=== PATIENT | female | born 1950 | race Caucasian/White ===

== ENCOUNTER 2021-06-07 05:39 | Day surgery (SDC) | payer MEDICARE, OTHER ==
[2021-06-07] MEDS ORDERED: Lactated Ringers 1,000 ML IV SCH (06:00)
[2021-06-07] MEDS ORDERED: DIPRIVAN 200 MG/20 ML IV ONE ×2 (07:25→07:50)
[2021-06-07] MEDS ORDERED: Xylocaine-Mpf 2% 5 Ml Vial ONE (07:50)
[2021-06-07] MEDS ORDERED: Zofran 4 MG/2 ML VIAL ONE (08:02)
[2021-06-07 09:37] VITALS: BP 153/80; PULSE 83; O2SAT 95
--- NOTE | 2021-06-07 10:40 | OP ---
SURGERY DATE/TIME: 06/07/2021 3632 PREOPERATIVE DIAGNOSES: 1) Gastroesophageal reflux disease. 2) Change in bowel habits. POSTOPERATIVE DIAGNOSES: 1) Normal EGD. 2) Diffuse diverticulosis. PROCEDURES: 1) EGD. 2) Colonoscopy. SURGEON: Wilmer Shah M.D. ANESTHESIA: MAC by Albert Marrero CRNA. ESTIMATED BLOOD LOSS: Minimal. SPECIMENS: There were two cold forceps biopsies taken from the duodenum for Helicobacter pylori testing. DESCRIPTION OF PROCEDURE: After informed written consent was obtained, the patient was taken to the endoscopy suite. She had a bite block inserted and was placed in left lateral decubitus position. The scope was inserted in the posterior oropharynx and under direct visualization the esophagus was traversed. The esophageal mucosa had normal appearance free of any lesions or defects. Upon entering the stomach there was a normal gastroesophageal junction with normal rugated gastric mucosa free of any lesions or defects. The pylorus was traversed and the first and second portions of the duodenum had no obvious mucosal abnormalities. Two cold forceps biopsies were collected randomly and sent for celiac testing. Upon withdrawal again the gastric mucosa all appeared within normal limits. There were no appreciable abnormalities upon withdrawal. The gastroesophageal junction and esophageal mucosa likewise appeared normal. The scope was removed and the scopes were switched. Digital rectal exam showed normal sphincter tone and no internal lesions. The scope was inserted in the rectum and sequentially the entire colonic mucosa was traversed. The level of the cecum was reached and verified with direct visualization of the ileocecal valve. There was diffuse diverticulosis present which was carefully navigated upon entry. Upon withdrawal careful mucosal inspection again revealed diffuse diverticulosis but mostly centered in the sigmoid colon where it was extensive but no other mucosal abnormalities were appreciable. Prior to withdrawal retroflexion was performed and showed no internal lesions. The scope was removed and the patient was transferred to the recovery room in good condition.
== END 2021-06-07 09:48 | disposition home or self-care (01) ==
LOC: SDC 05:39
PROVIDERS: ATTEND Family Medicine
DX: K21.9 Gastro-esophageal reflux disease without esophagitis (principal); R19.4 Change in bowel habit; R10.9 Unspecified abdominal pain; K57.30 Diverticulosis of large intestine without perforation or abscess without bleeding
CPT/HCPCS: 99100; J2405; J2704

== ENCOUNTER 2021-07-26 12:10 | Emergency (ER) | payer MEDICARE, OTHER ==
[2021-07-26 12:28] VITALS: O2SAT 98
[2021-07-26] MEDS ORDERED: XYLOCAINE 1% HCL 20 ML MDV ONE (12:33)
[2021-07-26] MEDS ORDERED: XYLOCAINE 2% HCL 20 ML MDV IJ ONE (12:34)
--- NOTE | 2021-07-26 12:41 | ERPHSYRPT ---
- History of Present Illness Time Seen by Provider: 07/26/21 12:30 Source: patient Patient Subjective Stated Complaint: skin tear Triage Nursing Assessment: pt to ED c/o L ankle pain r/t skin tear. her dogs tooth scraped her ankle last night. she was cleaned with peroxide and topical abx just after incident. rates 8/10 pain now. bleeding controlled. wrapped by daughter last night. Physician History: Patient is a 70-year-old female presents to our ED with a laceration to the medial aspect of her left lower extremity. Patient sustained a laceration injury by one of her dogs. Patient states 2 of her dogs were fighting. Dogs are both immunized. Patient attempted to pull the dogs apart and one dog bit our patient and lacerated the skin. Injury occurred last night. Patient cleaned the wound at home and administered Keflex. Patient's tetanus is not updated and cannot be updated as patient has severe allergy/adverse reaction to tetanus vaccinations. Patient took Tylenol for her pain. Patient states her pain is well controlled at this time. No other injuries reported. Symptoms are mild to moderate in intensity. No specific worsening or improving factors. Patient is ambulatory with a normal gait. Patient voices no other complaints or concerns at this time. Severity: moderate Modifying Factors: Improves With: nothing Associated Symptoms: denies symptoms Allergies/Adverse Reactions: levofloxacin [From Levaquin] Allergy (Severe, Verified 07/26/21 12:40) tendonitis metronidazole Allergy (Severe, Verified 07/26/21 12:40) tendonitis tetanus and diphtheria toxoids Allergy (Verified 07/26/21 12:40) Home Medications: Alprazolam [Xanax] 0.5 mg PO DAILY 06/07/21 [History] Hydrochlorothiazide 12.5 mg PO DAILY 06/07/21 [History] Losartan Potassium 50 mg [Cozaar 50 MG] 50 mg PO DAILY 06/07/21 [History] Metoprolol Succinate 50 mg PO DAILY 06/07/21 [History] Rosuvastatin Calcium [Crestor] 10 mg PO DAILY 06/07/21 [History] Hx Tetanus, Diphtheria Vaccination/Date Given: No Hx Influenza Vaccination/Date Given: Yes Hx Pneumococcal Vaccination/Date Given: Yes Immunizations Up to Date: No Travel Risk - International Travel Have you traveled outside of the country in past 3 weeks: No - Coronavirus Screening Are you exhibiting any of the following symptoms?: No Close contact with a COVID-19 positive Pt in past 14-21 Days: No - Vaccine Status Have you recieved a Covid-19 vaccination: Yes Lay Brother: [employer] - Vaccination Dates Date of 2cond Vaccination (if applicable): Dec - Review of Systems Constitutional: No Symptoms, No Fever, No Chills Eyes: No Symptoms Ears, Nose, & Throat: No Symptoms Respiratory: No Symptoms, No Cough, No Dyspnea Cardiac: No Symptoms, No Chest Pain, No Edema, No Syncope Abdominal/Gastrointestinal: No Symptoms, No Abdominal Pain, No Nausea, No Vo miting, No Diarrhea Genitourinary Symptoms: No Symptoms, No Dysuria Musculoskeletal: No Symptoms, No Back Pain, No Neck Pain Skin: No Symptoms, No Rash Neurological: No Symptoms, No Dizziness, No Focal Weakness, No Sensory Changes Psychological: No Symptoms Endocrine: No Symptoms Hematologic/Lymphatic: No Symptoms Immunological/Allergic: No Symptoms All Other Systems: Reviewed and Negative - Past Medical History Pertinent Past Medical History: Yes Neurological History: No Pertinent History ENT History: Other Cardiac History: High Cholesterol, Hypertension, Other Respiratory History: COPD Endocrine Medical History: No Pertinent History Musculoskeletal History: No Pertinent History GI Medical History: GERD History: Kidney Cancer Psycho-Social History: Anxiety Female Reproductive Disorders: No Pertinent History Other Medical History: 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, , 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, - Past Surgical History Past Surgical History: Yes Neuro Surgical History: No Pertinent History Cardiac: No Pertinent History Respiratory: No Pertinent History Gastrointestinal: Appendectomy Genitourinary: Kidney Surgery Musculoskeletal: Orthopedic Surgery Female Surgical History: Tubal Ligation Other Surgical History: left kidney removed from renal cell carcinoma -2017 - Social History Smoking Status: Former smoker Exposure to second hand smoke: No Drug Use: none Patient Lives Alone: No - Female History Hx Now: No - Nursing Vital Signs Nursing Vital Signs: Initial Vital Signs Temperature 97.4 F 07/26/21 12:18 Pulse Rate 82 07/26/21 12:18 Respiratory Rate 18 07/26/21 12:18 Blood Pressure 195/104 07/26/21 12:18 O2 Sat by Pulse Oximetry 98 07/26/21 12:18 Pain Scale Pain Intensity 0 - Physical Exam General Appearance: no apparent distress, alert Eye Exam: PERRL/EOMI, eyes nml inspection Ears, Nose, Throat Exam: normal ENT inspection, TMs normal, pharynx normal, moist mucous membranes Neck Exam: normal inspection, non-tender, supple, full range of motion Respiratory Exam: normal breath sounds, lungs clear, No respiratory distress Cardiovascular Exam: regular rate/rhythm, normal heart sounds, normal peripheral pulses Gastrointestinal/Abdomen Exam: soft, normal bowel sounds, No tenderness, No mass Back Exam: normal inspection, normal range of motion, No CVA tenderness, No vertebral tenderness Extremity Exam: normal inspection, normal range of motion, pelvis stable Neurologic Exam: alert, oriented x 3, cooperative, normal mood/affect, nml cerebellar function, nml station & gait, sensation nml, No motor deficits Skin Exam: normal color, warm, dry, No rash Lymphatic Exam: No adenopathy SpO2: 98 Procedures - Laceration/Wound Repair Medial Ankle Time of Procedure: 13:35 Wound Location: Left (Medial aspect left ankle.) Wound Length (cm): 10 Wound's Depth, Shape: into subcut Wound Explored: clean Irrigated: Yes Hibiclens Prep: No Anesthesia: 2% Lidocaine Volume Anesthetic (ccs): 8 Wound Debrided: No debridement indicated Suture Size/Type: 4-0 Number of Sutures: 14 Layer Closure?: No Sterile Dressing Applied?: Yes Splint Applied?: No Sling Applied?: No Progress: 14 simple interrupted 4-0 nylon sutures applied. Patient tolerated procedure well. No complications. Patient neurovascularly intact post procedure. 07/26/21 13:38 - Course Nursing assessment & vital signs reviewed: Yes Ordered Tests: Medication Summary Discontinued Medications Generic Name Dose Route Start Last Admin Trade Name Leatha PRN Reason Stop Dose Admin Lidocaine HCl 5 ml 07/26/21 12:34 07/26/21 12:42 Xylocaine 2% Hcl 20 Ml Mdv IJ 07/26/21 12:35 5 ml STAT ONE Administration Lidocaine HCl Confirm 07/26/21 12:33 Xylocaine 1% Hcl 20 Ml Mdv Administered 07/26/21 12:34 Dose 1 ml .ROUTE .STK-MED ONE - Progress Progress: improved Progress Note: Wound was semilunar with a flap formation. Wound measures 10 cm. 14 simple interrupted sutures using 4-0 nylon were used for the repair. Patient tolerated procedure well. Extremity was neurovascular intact before and after our procedure. A prescription for Augmentin was forwarded to patient's pharmacy. Patient will follow up with her primary care doctor within 48 hours for reevaluation. Pain resolved after administration of lidocaine. Portions of this note were created with voice recognition technology. There may be grammatical, spelling, punctuation or sound alike errors 07/26/21 13:24 Counseled pt/family regarding: diagnosis, need for follow-up - Departure Departure Disposition: Home Clinical Impression: Dog bite, Laceration Condition: Stable Critical Care Time: No Referrals: MIKEY NEVES MD [Primary Care Provider] - Instructions: Wound Care (DC), Laceration Repair With Stitches (DC) Additional Instructions: Discharge/Care Plan JULIO BRYANT was seen on 07/26/21 in the Emergency Room. The patient was counseled regarding Diagnosis,Lab results, Imaging studies, need for follow up and when to return to the Emergency Room. Prescriptions given: Discharge Note I have spoken with the patient and/or caregivers. I have explained the patient's condition, diagnosis and treatment plan based on the information available to me at this time. I have answered the patient's and/or caregiver's questions and addressed any concerns. The patient and/or caregivers have as good understanding of the patient's diagnosis, condition and treatment plan as can be expected at this point. The vital signs have been stable. The patient's condition is stable and appropriate for discharge from the emergency department. The patient will pursue further outpatient evaluation with the primary care physician or other designated or consulting physician as outlined in the discharge instructions. The patient and/or caregivers are agreeable to this plan of care and follow-up instructions have been explained in detail. The patient and/or caregivers have received these instruction. The patient/and or caregivers are aware that any significant change in condition or worsening of symptoms should prompt an immediate return to this or the closest emergency department or call 911. Prescriptions: Amox Tr/Potass Clav. 875 mg [Augmentin 875-125 Tablet] 875 mg PO BID 7 Days #14 tablet
[2021-07-26 13:27] VITALS: BP 165/75; PULSE 76
== END 2021-07-26 13:38 | disposition home or self-care (01) ==
LOC: ED 12:10
DX: S91.012A Laceration without foreign body, left ankle, initial encounter (principal); S91.052A Open bite, left ankle, initial encounter
CPT/HCPCS: 12004; 96372; 99283

== ENCOUNTER 2022-10-03 19:35 | Emergency (ER) | payer MEDICARE, OTHER ==
--- NOTE | 2022-10-03 20:02 | ERPHSYRPT ---
- History of Present Illness Time Seen by Provider: 10/03/22 20:02 Source: patient, family Exam Limitations: no limitations Physician History: This is a 71-year-old patient of Dr. Shah who has a history of hypertension, hyperlipidemia, COPD and presents to the emergency department because of high blood pressure and associated headache. Today, patient had an eye doctor's appointment in [facility]. When she arrived her systolic blood pressure was in approximately 220 range. Her procedure was canceled. She then proceeded to Dr. Shah's office where her blood pressure improved to systolic blood pressure in the 140s. Patient takes metoprolol, losartan and hydrochlorothiazide for blood pressure. She takes those in the morning. She also has some anxiety issues and takes Xanax at night. Patient was told that if she had recurrent headache and/or her blood pressure was elevated, she should proceed to urgent care or the emergency department. Patient arrives to the emergency department with a systolic blood pressure of 177. She denies chest pain. Patient denies shortness of breath. Timing/Duration: today Severity: mild (To moderate) Associated Symptoms: headaches, No chest pain Allergies/Adverse Reactions: levofloxacin [From Levaquin] Allergy (Severe, Verified 10/03/22 20:32) tendonitis metronidazole Allergy (Severe, Verified 10/03/22 20:32) tendonitis tetanus and diphtheria toxoids Allergy (Severe, Verified 10/03/22 20:32) Home Medications: Alprazolam [Xanax] 0.5 mg PO HS 06/07/21 [History] Losartan Potassium 50 mg [Cozaar 50 MG] 50 mg PO DAILY 06/07/21 [History] Metoprolol Succinate 50 mg PO DAILY 06/07/21 [History] hydroCHLOROthiazide [Hydrochlorothiazide] 12.5 mg PO DAILY 06/07/21 [History] Hx Tetanus, Diphtheria Vaccination/Date Given: No Hx Influenza Vaccination/Date Given: Yes Hx Pneumococcal Vaccination/Date Given: Yes Travel Risk - International Travel Have you traveled outside of the country in past 3 weeks: No - Coronavirus Screening Are you exhibiting any of the following symptoms?: No Close contact with a COVID-19 positive Pt in past 14-21 Days: No - Vaccine Status Have you recieved a Covid-19 vaccination: Yes Machine Stuffer Automatic: Pfizer - Vaccination Dates Date of 2cond Vaccination (if applicable): Dec - Review of Systems Constitutional: No Symptoms Eyes: No Symptoms Ears, Nose, & Throat: No Symptoms Respiratory: No Symptoms Cardiac: No Symptoms Abdominal/Gastrointestinal: No Symptoms Genitourinary Symptoms: No Symptoms Musculoskeletal: No Symptoms Skin: No Symptoms Neurological: Headache Psychological: Anxiety Endocrine: No Symptoms Hematologic/Lymphatic: No Symptoms Immunological/Allergic: No Symptoms All Other Systems: Reviewed and Negative - Past Medical History Pertinent Past Medical History: Yes Neurological History: No Pertinent History ENT History: Other Cardiac History: High Cholesterol, Hypertension, Other Respiratory History: COPD Endocrine Medical History: No Pertinent History Musculoskeletal History: No Pertinent History GI Medical History: GERD History: Kidney Cancer Psycho-Social History: Anxiety Female Reproductive Disorders: No Pertinent History Other Medical History: 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, , 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, - Past Surgical History Past Surgical History: Yes Neuro Surgical History: No Pertinent History Cardiac: No Pertinent History Respiratory: No Pertinent History Gastrointestinal: Appendectomy Genitourinary: Kidney Surgery Musculoskeletal: Orthopedic Surgery Female Surgical History: Tubal Ligation Other Surgical History: left kidney removed from renal cell carcinoma -2016 - Social History Smoking Status: Former smoker Exposure to second hand smoke: No Drug Use: none Patient Lives Alone: No - Nursing Vital Signs Nursing Vital Signs: Initial Vital Signs Temperature 98.2 F 10/03/22 20:00 Pulse Rate 76 10/03/22 20:00 Respiratory Rate 18 10/03/22 20:00 Blood Pressure 177/90 10/03/22 20:00 O2 Sat by Pulse Oximetry 95 10/03/22 20:00 Pain Scale Pain Intensity 5 - Physical Exam General Appearance: no apparent distress, alert, anxiety Eye Exam: PERRL/EOMI, eyes nml inspection Ears, Nose, Throat Exam: normal ENT inspection, moist mucous membranes Neck Exam: normal inspection, non-tender, supple, full range of motion Respiratory Exam: normal breath sounds, lungs clear, airway intact, No chest tenderness, No respiratory distress Cardiovascular Exam: regular rate/rhythm, normal heart sounds, normal peripheral pulses Gastrointestinal/Abdomen Exam: soft, normal bowel sounds, No tenderness Rectal Exam: not done Back Exam: normal inspection, normal range of motion, No CVA tenderness, No vertebral tenderness Extremity Exam: normal inspection, normal range of motion, pelvis stable Neurologic Exam: alert, oriented x 3, cooperative, precipitate washer II-XII nml as tested, normal mood/affect, nml cerebellar function, nml station & gait, sensation nml Skin Exam: normal color, warm, dry Lymphatic Exam: No adenopathy SpO2 Interpretation: normal O2 Delivery: Room Air - Course Nursing assessment & vital signs reviewed: Yes EKG Interpreted by Me: RATE (72), Sinus Rhythm, NORMAL AXIS, NORMAL INTERVALS, NORMAL QRS, NORMAL ST-T, Other (No acute ischemic changes on today's EKG) Ordered Tests: Active Orders 24 hr Category Date Time Status EKG-ER Only STAT Care 10/03/22 20:42 Active IV Insertion STAT Care 10/03/22 20:42 Active Pulse Oximetry (ED) STAT Care 10/03/22 20:42 Active HEAD WITHOUT CONTRAST [CT] Stat Exams 10/03/22 20:44 Taken VENOUS UNILAT/LIMITED EXTREMIT [US] Stat Exams 10/03/22 22:21 Ordered CBC W DIFF Stat Lab 10/03/22 21:00 Completed CMP Stat Lab 10/03/22 21:00 Completed D-DIMER QUANTITATIVE Stat Lab 10/03/22 21:23 Completed MAGNESIUM Stat Lab 10/03/22 21:00 Completed TROPONIN Q4H Lab 10/03/22 21:00 Completed TROPONIN Q4H Lab 10/04/22 00:45 Ordered TROPONIN Q4H Lab 10/04/22 04:45 Ordered UA W/RFX CULTURE Stat Lab 10/03/22 22:32 Completed Medication Summary Discontinued Medications Generic Name Dose Route Start Last Admin Trade Name Praneethq PRN Reason Stop Dose Admin Labetalol HCl 10 mg 10/03/22 20:42 10/03/22 21:04 Labetalol Hcl 20 Mg/4 Ml Disp.Syringe IV 10/03/22 20:43 5 mg STAT ONE Administration Labetalol HCl Confirm 10/03/22 20:47 Labetalol Hcl 20 Mg/4 Ml Disp.Syringe Administered 10/03/22 20:48 Dose 20 mg IV .STK-MED ONE Lab/Rad Data: Laboratory Result Diagrams 10/03/22 21:00 10/03/22 21:00 Laboratory Results 10/03/22 10/03/22 10/03/22 Range/Units 22:32 21:23 21:00 WBC (4.0-10.5) x10^3/uL RBC (4.1-5.4) x10^6/uL Hgb (12.0-16.0) g/dL Hct (35-47) % MCV (78-100) fL MCH (26-32) pg MCHC (32-36) g/dL RDW (11.5-14.0) % Plt Count (150-450) x10^3/uL MPV (7.5-11.0) fL Gran % (36.0-66.0) % Immature Gran % (Auto) (0.00-0.4) % Nucleat RBC Rel Count (0.00-0.1) % Eos # (Auto) (0-0.5) x10^3/uL Immature Gran # (Auto) (0.00-0.03) x10^3u/L Absolute Lymphs (auto) (1.0-4.6) x10^3/uL Absolute Monos (auto) (0.0-1.3) x10^3/uL Absolute Nucleated RBC (0.00-0.01) x10^3u/L Lymphocytes % (24.0-44.0) % Monocytes % (0.0-12.0) % Eosinophils % (0.00-5.0) % Basophils % (0.0-0.4) % Absolute Granulocytes (1.4-6.9) x10^3/uL Basophils # (0-0.4) x10^3/uL D-Dimer 0.54 H (0.0-0.50) mg/L Sodium (137-145) mmol/L Potassium (3.5-5.1) mmol/L Chloride (98-107) mmol/L Carbon Dioxide (22-30) mmol/L Anion Gap (5-15) MEQ/L BUN (7-17) mg/dL Creatinine (0.52-1.04) mg/dL Estimated GFR ML/MIN Glucose (74-106) mg/dL Calcium (8.4-10.2) mg/dL Magnesium (1.6-2.3) mg/dL Total Bilirubin (0.2-1.3) mg/dL AST (14-36) U/L ALT (0-35) U/L Alkaline Phosphatase (38-126) U/L Troponin I < 0.012 (0.000-0.034) ng/mL Serum Total Protein (6.3-8.2) g/dL Albumin (3.5-5.0) g/dL Urinalys Dipstick Clnc MAIN LAB Urine Color YELLOW (YELLOW) Urine Appearance CLEAR (CLEAR) Urine pH 6.0 (5-6) Ur Specific [place] 1.020 (1.005-1.025) POC Urine Protein Conf NEGATIVE (Negative) Urine Ketones NEGATIVE (NEGATIVE) Urine Nitrite NEGATIVE (NEGATIVE) Urine Bilirubin NEGATIVE (NEGATIVE) Urine Urobilinogen 0.2 (0-1) mg/dL Urine Leukocytes NEGATIVE (NEGATIVE) Urine WBC (Auto) 0-2 (0-5) /HPF Urine RBC (Auto) NONE (0-2) /HPF U Epithel Cells (Auto) NONE (FEW) /HPF Urine Bacteria (Auto) NONE (NEGATIVE) /HPF Urine RBC TRACE-INTACT A (0-5) Jovan/ul Ur Culture Indicated? NO Urine Glucose NEGATIVE (NEGATIVE) mg/dL 10/03/22 10/03/22 Range/Units 21:00 21:00 WBC 7.6 (4.0-10.5) x10^3/uL RBC 4.40 (4.1-5.4) x10^6/uL Hgb 14.1 (12.0-16.0) g/dL Hct 41.3 (35-47) % MCV 93.9 (78-100) fL MCH 32.0 (26-32) pg MCHC 34.1 (32-36) g/dL RDW 11.9 (11.5-14.0) % Plt Count 243 (150-450) x10^3/uL MPV 9.2 (7.5-11.0) fL Gran % 52.7 (36.0-66.0) % Immature Gran % (Auto) 0.3 (0.00-0.4) % Nucleat RBC Rel Count 0.0 (0.00-0.1) % Eos # (Auto) 0.39 (0-0.5) x10^3/uL Immature Gran # (Auto) 0.02 (0.00-0.03) x10^3u/L Absolute Lymphs (auto) 2.37 (1.0-4.6) x10^3/uL Absolute Monos (auto) 0.74 (0.0-1.3) x10^3/uL Absolute Nucleated RBC 0.00 (0.00-0.01) x10^3u/L Lymphocytes % 31.1 (24.0-44.0) % Monocytes % 9.7 (0.0-12.0) % Eosinophils % 5.1 H (0.00-5.0) % Basophils % 1.1 (0.0-0.4) % Absolute Granulocytes 4.01 (1.4-6.9) x10^3/uL Basophils # 0.08 (0-0.4) x10^3/uL D-Dimer (0.0-0.50) mg/L Sodium 134 L (137-145) mmol/L Potassium 4.0 (3.5-5.1) mmol/L Chloride 101 (98-107) mmol/L Carbon Dioxide 23 (22-30) mmol/L Anion Gap 14.1 (5-15) MEQ/L BUN 24 H (7-17) mg/dL Creatinine 0.85 (0.52-1.04) mg/dL Estimated GFR > 60.0 ML/MIN Glucose 140 H (74-106) mg/dL Calcium 9.7 (8.4-10.2) mg/dL Magnesium 1.7 (1.6-2.3) mg/dL Total Bilirubin 0.40 (0.2-1.3) mg/dL AST 28 (14-36) U/L ALT 22 (0-35) U/L Alkaline Phosphatase 111 (38-126) U/L Troponin I (0.000-0.034) ng/mL Serum Total Protein 7.0 (6.3-8.2) g/dL Albumin 4.4 (3.5-5.0) g/dL Urinalys Dipstick Clnc Urine Color (YELLOW) Urine Appearance (CLEAR) Urine pH (5-6) Ur Specific [place] (1.005-1.025) POC Urine Protein Conf (Negative) Urine Ketones (NEGATIVE) Urine Nitrite (NEGATIVE) Urine Bilirubin (NEGATIVE) Urine Urobilinogen (0-1) mg/dL Urine Leukocytes (NEGATIVE) Urine WBC (Auto) (0-5) /HPF Urine RBC (Auto) (0-2) /HPF U Epithel Cells (Auto) (FEW) /HPF Urine Bacteria (Auto) (NEGATIVE) /HPF Urine RBC (0-5) Jovan/ul Ur Culture Indicated? Urine Glucose (NEGATIVE) mg/dL - Progress Progress: improved Progress Note: 10/03/22 22:06 CT scan of head without contrast shows no acute intracranial abnormality. 10/03/22 23:07 Venous Doppler right lower extremity is negative for any DVT. There is a right popliteal Mahoney's cyst. Counseled pt/family regarding: lab results, diagnosis, need for follow-up, rad results - Departure Departure Disposition: Home Clinical Impression: Hypertension, Mahoney's cyst Condition: Stable Critical Care Time: Yes Critical Care Time(excluding separately billable procedures): Critical 30-74 mins (40 minutes) Referrals: MIKEY SHAH MD [Primary Care Provider] - Follow up/PCP as directed Additional Instructions: Keep your appointment with Dr. Shah on 10/05/2022. Keep a morning noon and night log of your blood pressure on 10/04/2022. Take that log with you to the appointment with Dr. Shah.
[2022-10-03] MEDS ORDERED: TRANDATE 20 MG/4 ML SYRINGE IV ONE (20:47)
[2022-10-03] MEDS: TRANDATE 20 MG/4 ML SYRINGE IV ONE (21:04)
[2022-10-03 21:13] LABS: Absolute Neutrophil Ct (ANC) 4.01 x10^3/uL (1.4-6.9); Basophil (Absolute #) 0.08 x10^3/uL (0-0.4); Eosinophil % 5.1 % (0.00-5.0); Eosinophil (Absolute #) 0.39 x10^3/uL (0-0.5); Hematocrit 41.3 % (35-47); Hemoglobin 14.1 g/dL (12.0-16.0); Lymphocyte (Absolute #) 2.37 x10^3/uL (1.0-4.6); Lymphocytes % 31.1 % (24.0-44.0); Mean Cell Volume 93.9 fL (78-100); Mean Corpuscular Hgb Concent. 34.1 g/dL (32-36); Mean Platelet Volume 9.2 fL (7.5-11.0); Monocyte (Absolute #) 0.74 x10^3/uL (0.0-1.3); Monocytes % 9.7 % (0.0-12.0); Neutrophil % 52.7 % (36.0-66.0); Platelet Count 243 x10^3/uL (150-450); Red Cell Distribution Width 11.9 % (11.5-14.0); White Blood Count 7.6 x10^3/uL (4.0-10.5)
[2022-10-03 22:16] LABS: ALBUMIN 4.4 g/dL (3.5-5.0); ALKALINE PHOSPHATASE 111 U/L (38-126); ANION GAP 14.1 MEQ/L (5-15); BLOOD UREA NITROGEN 24 mg/dL (7-17); CHLORIDE 101 mmol/L (98-107); Calcium 9.7 mg/dL (8.4-10.2); Carbon Dioxide 23 mmol/L (22-30); Creatinine 1 0.85 mg/dL (0.52-1.04); EST GLOMERULAR FILTRATION RATE > 60.0 ML/MIN; Glucose 140 mg/dL (74-106); MAGNESIUM 1.7 mg/dL (1.6-2.3); SGOT/AST 28 U/L (14-36); SGPT/ALT 22 U/L (0-35); SODIUM 134 mmol/L (137-145)
[2022-10-03 22:54] LABS: WBC 0-2 /HPF (0-5)
[2022-10-03 22:56] LABS: Appearance CLEAR (CLEAR); Bilirubin NEGATIVE (NEGATIVE); Dipstick done @ ? MAIN LAB; Glucose NEGATIVE (NEGATIVE); Ketones NEGATIVE (NEGATIVE); Nitrite NEGATIVE (NEGATIVE); Protein,Urine Dip NEGATIVE (Negative); RBC TRACE-INTACT Ery/ul (0-5); Urine Cultured Indicated? NO; Urobilinogen 0.2 mg/dL (0-1)
[2022-10-03 23:10] VITALS: PULSE 79; O2SAT 96
[2022-10-03 23:14] VITALS: BP 132/68
--- NOTE | 2022-10-04 08:35 | XRAY ---
Indication: Pain. Two-dimensional sonogram and color Doppler imaging of the major venous vessels of the right leg performed. Comparison: None No thrombus seen in the examined deep venous vessels of the right leg including greater saphenous vein. Veins demonstrate normal compressibility. Venous waveforms are normal with and without augmentation. Posterior knee demonstrates a 1.9 x 1.5 x 4.1 cm Mahoney's cyst with low level internal echoes/debris. Impression: Right leg negative for DVT. Incidental complex Mahoney's cyst. Comment: Preliminary report was given.
--- NOTE | 2022-10-04 08:49 | XRAY ---
Indication: Headache. Hypertension. Multiple contiguous axial images obtained through the head without contrast. Comparison: None Normal appearing brain parenchyma, ventricles, and bony calvarium for patient's age. Visualized paranasal sinuses and mastoid air cells are clear. Impression: Normal CT head without contrast exam.
== END 2022-10-03 23:22 | disposition home or self-care (01) ==
LOC: ED 19:35
DX: I10 Essential (primary) hypertension (principal); M71.21 Synovial cyst of popliteal space [Baker], right knee; R51.9 Headache, unspecified; E78.5 Hyperlipidemia, unspecified; Z79.899 Other long term (current) drug therapy
CPT/HCPCS: 36000; 36415; 70450; 80053; 81015; 83735; 84484; 85025; 85379; 93005; 93971; 94760; 96374; 99284; 99291

== ENCOUNTER 2022-10-07 22:39 | Emergency (ER) | payer MEDICARE, OTHER ==
[2022-10-07] MEDS ORDERED: CLONIDINE 0.1 MG TABLET PO ONE (23:28)
[2022-10-07] MEDS ORDERED: CLONIDINE 0.1 MG TABLET ONE (23:30)
--- NOTE | 2022-10-07 23:35 | ERPHSYRPT ---
- History of Present Illness Source: patient Exam Limitations: no limitations Patient Subjective Stated Complaint: pt is experienncing high blood pressure and is not sure what is causing it. p has history of hypertension and renal issues. Triage Nursing Assessment: pt is alert and oriented. states she is having r knee pain. bp has been elevated for several days despite increase in losarten Physician History: 71 yo WF who was seen in the ER on 10/03/22 for HTN/WEBB presents w increased BP but denies headache/chest pain/dyspnea/focal weakness/nausea/visual impairment at this time. Pt saw Dr. Shah on 10/05/22, and he increased her Losartan to 100mg daily from 50mg. She was also started on prednisone for a L Mahoney's cyst. Pt is very anxious and also took a Xanax at 21:30. She takes all of her BP meds in the morning. Timing/Duration: other (Today and over the last 1-2 weeks) Severity: moderate Modifying Factors: Improves With: nothing Associated Symptoms: denies symptoms Allergies/Adverse Reactions: levofloxacin [From Levaquin] Allergy (Severe, Verified 10/07/22 23:03) tendonitis tetanus and diphtheria toxoids Allergy (Severe, Verified 10/07/22 23:03) Home Medications: Alprazolam [Xanax] 0.5 mg PO HS 06/07/21 [History] Losartan Potassium 50 mg [Cozaar 50 MG] 50 mg PO DAILY 06/07/21 [History] Metoprolol Succinate 50 mg PO DAILY 06/07/21 [History] hydroCHLOROthiazide [Hydrochlorothiazide] 12.5 mg PO DAILY 06/07/21 [History] Hx Tetanus, Diphtheria Vaccination/Date Given: No Hx Influenza Vaccination/Date Given: Yes Hx Pneumococcal Vaccination/Date Given: Yes Travel Risk - International Travel Have you traveled outside of the country in past 3 weeks: No - Coronavirus Screening Are you exhibiting any of the following symptoms?: No Close contact with a COVID-19 positive Pt in past 14-21 Days: No - Vaccine Status Have you recieved a Covid-19 vaccination: Yes 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: [employer] - Vaccination Dates Date of 2cond Vaccination (if applicable): unknown - Review of Systems Constitutional: No Symptoms Eyes: No Symptoms Ears, Nose, & Throat: No Symptoms Respiratory: No Symptoms Cardiac: No Symptoms Abdominal/Gastrointestinal: No Symptoms Genitourinary Symptoms: No Symptoms Musculoskeletal: No Symptoms Skin: No Symptoms Neurological: No Symptoms Psychological: No Symptoms Endocrine: No Symptoms Hematologic/Lymphatic: No Symptoms Immunological/Allergic: No Symptoms - Past Medical History Pertinent Past Medical History: Yes Neurological History: No Pertinent History ENT History: Other Cardiac History: High Cholesterol, Hypertension, Other Respiratory History: COPD Endocrine Medical History: No Pertinent History Musculoskeletal History: No Pertinent History GI Medical History: GERD History: Kidney Cancer Psycho-Social History: Anxiety Female Reproductive Disorders: No Pertinent History Other Medical History: 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, , 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, - Past Surgical History Past Surgical History: Yes Neuro Surgical History: No Pertinent History Cardiac: No Pertinent History Respiratory: No Pertinent History Gastrointestinal: Appendectomy Genitourinary: Kidney Surgery Musculoskeletal: Orthopedic Surgery Female Surgical History: Tubal Ligation Other Surgical History: left kidney removed from renal cell carcinoma -2017 - Social History Smoking Status: Former smoker Exposure to second hand smoke: No Drug Use: none Patient Lives Alone: No - Nursing Vital Signs Nursing Vital Signs: Initial Vital Signs Temperature 97.8 F 10/07/22 22:45 Pulse Rate 71 10/07/22 22:45 Respiratory Rate 18 10/07/22 22:45 Blood Pressure 182/94 10/07/22 22:45 O2 Sat by Pulse Oximetry 95 10/07/22 22:45 Pain Scale Pain Intensity 7 Hypertensive - Physical Exam General Appearance: no apparent distress, anxiety Eye Exam: PERRL/EOMI, eyes nml inspection Ears, Nose, Throat Exam: normal ENT inspection, TMs normal, pharynx normal, moist mucous membranes Neck Exam: normal inspection, non-tender, supple, full range of motion, No meningismus, No mass, No Brudzinski, No Kernig's Respiratory Exam: normal breath sounds, lungs clear, airway intact Cardiovascular Exam: regular rate/rhythm, normal heart sounds, normal peripheral pulses, capillary refill <2 sec, No murmur Gastrointestinal/Abdomen Exam: soft, normal bowel sounds, No tenderness Back Exam: normal inspection, normal range of motion, No CVA tenderness, No vertebral tenderness Extremity Exam: normal inspection, normal range of motion Neurologic Exam: alert, oriented x 3, cooperative, 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, normal mood/affect, nml cerebellar function, nml station & gait, sensation nml Skin Exam: normal color, warm, dry, No rash Lymphatic Exam: No adenopathy SpO2 Interpretation: normal SpO2: 95 O2 Delivery: Room Air Ordered Tests: Medication Summary Discontinued Medications Generic Name Dose Route Start Last Admin Trade Name Praneethq PRN Reason Stop Dose Admin Clonidine 0.2 mg 10/07/22 23:28 10/07/22 23:32 Clonidine Hcl 0.1 Mg Tablet PO 10/07/22 23:29 0.2 mg STAT ONE Administration Clonidine Confirm 10/07/22 23:30 Clonidine Hcl 0.1 Mg Tablet Administered 10/07/22 23:31 Dose 0.2 mg .ROUTE .STamSTATZ-MED ONE - Progress Progress: improved Progress Note: 10/08/22 00:17 Pt's BP decreased after 0.2mg po Clonidine Pt wo chest pain, dyspnea, focal weakness, or headache in ER Counseled pt/family regarding: diagnosis, need for follow-up - Departure Departure Disposition: Home Clinical Impression: Hypertension Condition: Stable Critical Care Time: No Referrals: MIKEY SHAH MD [Primary Care Provider] - Follow up/PCP as directed Instructions: Malignant Hypertension (DC) Additional Instructions: Return to ER for systolic blood pressure(top number) greater than 180 or diastolic blood pressure(bottom number) greater than 95, headache, focal weakness, chest pain, or shortness of breath Continue current blood pressure medications Prescriptions: Clonidine HCl 0.1 mg [Clonidine 0.1 mg Tablet] 0.1 mg PO TID PRN PRN #20 tablet PRN Reason: Hypertension
[2022-10-08 00:04] VITALS: BP 167/85; PULSE 60
[2022-10-08 00:07] VITALS: O2SAT 95
== END 2022-10-08 00:18 | disposition home or self-care (01) ==
LOC: ED 22:39
DX: I10 Essential (primary) hypertension (principal); E78.5 Hyperlipidemia, unspecified; J44.9 Chronic obstructive pulmonary disease, unspecified; Z79.899 Other long term (current) drug therapy
CPT/HCPCS: 99281; A9270-GY

== ENCOUNTER 2023-02-07 16:22 | Emergency (ER) | payer MEDICARE, OTHER ==
[2023-02-07 17:22] VITALS: BP 174/73; PULSE 70; O2SAT 95
--- NOTE | 2023-02-07 18:36 | ERPHSYRPT ---
- History of Present Illness Time Seen by Provider: 02/07/23 18:32 Source: patient Exam Limitations: no limitations Patient Subjective Stated Complaint: Skin area Triage Nursing Assessment: Patient ambulated back to ED and transferred self to bed. Patient A+O X.3 Patient's skin pink, warm and dry. Patient states she has been itching her entire body since being on Lexapro. Yesterday Dr. Neevs told her to wean off of it. Patient states she noticed a red raised area to left inner thigh last night that itched. Patient states she woke up today and the area is larger and warm. Patient has bruised looking area to left inner thigh that is warm to touch. Patient denies pain or discomfort. Physician History: Patient is a 72-year-old female here for concern for possible blood clot. Patient has a resolving hematoma in the medial aspect of her left proximal thigh. The hematoma was formed from scratching. Patient googled her symptoms and became concerned for blood clot. Patient is currently weaning off of Lexapro. Patient was advised to do so by her primary care physician who feels that the itching/pruritus is due to Lexapro. Patient has no chest pain or shortness of breath. No nausea vomiting or diaphoresis. Patient voices no other complaints or concerns at this time. Portions of this note were created with voice recognition technology. There may be grammatical, spelling, punctuation or sound alike errors Timing/Duration: yesterday Severity: moderate Modifying Factors: Improves With: nothing Associated Symptoms: denies symptoms Allergies/Adverse Reactions: levofloxacin [From Levaquin] Allergy (Severe, Verified 02/07/23 17:16) tendonitis tetanus and diphtheria toxoids Allergy (Severe, Verified 02/07/23 17:16) Home Medications: Alprazolam [Xanax] 0.5 mg PO HS 06/07/21 [History] Losartan Potassium 50 mg [Cozaar 50 MG] 50 mg PO DAILY 06/07/21 [History] Metoprolol Succinate 50 mg PO DAILY 06/07/21 [History] hydroCHLOROthiazide [Hydrochlorothiazide] 12.5 mg PO DAILY 06/07/21 [History] Amlodipine Besylate 5 mg [Norvasc 5 mg] 1 tab PO DAILY 02/07/23 [History] Rosuvastatin Calcium 1 tab PO HS 02/07/23 [History] Hx Tetanus, Diphtheria Vaccination/Date Given: No Hx Influenza Vaccination/Date Given: Yes Hx Pneumococcal Vaccination/Date Given: Yes Immunizations Up to Date: Yes Travel Risk - International Travel Have you traveled outside of the country in past 3 weeks: No - Coronavirus Screening Close contact with a COVID-19 positive Pt in past 14-21 Days: No - Vaccine Status Have you recieved a Covid-19 vaccination: Yes 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: [employer] - Vaccination Dates Date of 2cond Vaccination (if applicable): unknown - Review of Systems Constitutional: No Symptoms, No Fever, No Chills Eyes: No Symptoms Ears, Nose, & Throat: No Symptoms Respiratory: No Symptoms, No Cough, No Dyspnea Cardiac: No Symptoms, No Chest Pain, No Edema, No Syncope Abdominal/Gastrointestinal: No Symptoms, No Abdominal Pain, No Nausea, No Vomiting, No Diarrhea Genitourinary Symptoms: No Symptoms, No Dysuria Musculoskeletal: No Symptoms, No Back Pain, No Neck Pain Skin: No Symptoms, No Rash Neurological: No Symptoms, No Dizziness, No Focal Weakness, No Sensory Changes Psychological: No Symptoms Endocrine: No Symptoms Hematologic/Lymphatic: No Symptoms Immunological/Allergic: No Symptoms All Other Systems: Reviewed and Negative - Past Medical History Pertinent Past Medical History: Yes Neurological History: No Pertinent History ENT History: Other Cardiac History: High Cholesterol, Hypertension, Other Respiratory History: COPD Endocrine Medical History: No Pertinent History Musculoskeletal History: No Pertinent History GI Medical History: GERD History: Kidney Cancer Psycho-Social History: Anxiety Female Reproductive Disorders: No Pertinent History Other Medical History: 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, , 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, - Past Surgical History Past Surgical History: Yes Neuro Surgical History: No Pertinent History Cardiac: No Pertinent History Respiratory: No Pertinent History Gastrointestinal: Appendectomy Genitourinary: Kidney Surgery Musculoskeletal: Orthopedic Surgery Female Surgical History: Tubal Ligation Other Surgical History: left kidney removed from renal cell carcinoma -2017 - Social History Smoking Status: Former smoker Exposure to second hand smoke: No Drug Use: none Patient Lives Alone: No - Nursing Vital Signs Nursing Vital Signs: Initial Vital Signs Temperature 96.4 F 02/07/23 17:17 Pulse Rate 70 02/07/23 17:17 Respiratory Rate 18 02/07/23 17:17 Blood Pressure 174/73 02/07/23 17:17 O2 Sat by Pulse Oximetry 95 02/07/23 17:17 Pain Scale Pain Intensity 0 - Physical Exam General Appearance: no apparent distress, alert Eye Exam: PERRL/EOMI, eyes nml inspection Ears, Nose, Throat Exam: normal ENT inspection, TMs normal, pharynx normal, moist mucous membranes Neck Exam: normal inspection, non-tender, supple, full range of motion Respiratory Exam: normal breath sounds, lungs clear, No respiratory distress Cardiovascular Exam: regular rate/rhythm, normal heart sounds, normal peripheral pulses Gastrointestinal/Abdomen Exam: soft, normal bowel sounds, No tenderness, No mass Back Exam: normal inspection, normal range of motion, No CVA tenderness, No vertebral tenderness Extremity Exam: normal inspection, normal range of motion, pelvis stable, other (Left upper medial thigh ecchymosis likely due to to scratching a pruritic area. Negative Homans' sign.) Neurologic Exam: alert, oriented x 3, cooperative, normal mood/affect, nml cerebellar function, nml station & gait, sensation nml, No motor deficits Skin Exam: normal color, warm, dry, No rash Lymphatic Exam: No adenopathy SpO2 Interpretation: normal SpO2: 95 O2 Delivery: Room Air - Course Nursing assessment & vital signs reviewed: Yes - Progress Progress: improved Progress Note: 72-year-old female presents to our ED with an area of ecchymosis at the proximal medial aspect of her left thigh. Patient has been scratching at this area due to pruritus. Patient currently weaning herself off of Lexapro as her primary care physician believes the pruritus may be due to the Lexapro. Adebayo test negative. Physical exam not consistent with DVT. No indication for work-up at this time. Will discharge home. Complexity of problem addressed is low. Problem is acute uncomplicated. No critical care time. Complexity of data reviewed and analyzed is none. No specialized testing ordered. No specialized testing indicated. Risk of complications and or risk of morbidity/mortality of patient management is minimal. No specific management indicated. Patient advised to not scratch the area. Resolving ecchymosis observed on physical exam is expected to resolve spontaneously. Portions of this note were created with voice recognition technology. There may be grammatical, spelling, punctuation or sound alike errors Counseled pt/family regarding: need for follow-up - Departure Departure Disposition: Home Clinical Impression: Encounter for medical screening examination, Ecchymosis Condition: Stable Critical Care Time: No Referrals: MIKEY NEVES MD [Primary Care Provider] - Follow up/PCP as directed Additional Instructions: Discharge/Care Plan JULIO BRYANT was seen on 02/07/23 in the Emergency Room. The patient was counseled regarding Diagnosis,Lab results, Imaging studies, need for follow up and when to return to the Emergency Room. Prescriptions given: Discharge Note I have spoken with the patient and/or caregivers. I have explained the patient's condition, diagnosis and treatment plan based on the information available to me at this time. I have answered the patient's and/or caregiver's questions and addressed any concerns. The patient and/or caregivers have as good understanding of the patient's diagnosis, condition and treatment plan as can be expected at this point. The vital signs have been stable. The patient's condition is stable and appropriate for discharge from the emergency department. The patient will pursue further outpatient evaluation with the primary care physician or other designated or consulting physician as outlined in the discharge instructions. The patient and/or caregivers are agreeable to this plan of care and follow-up instructions have been explained in detail. The patient and/or caregivers have received these instruction. The patient/and or caregivers are aware that any significant change in condition or worsening of symptoms should prompt an immediate return to this or the closest emergency department or call 911.
== END 2023-02-07 18:45 | disposition home or self-care (01) ==
LOC: ED 16:22
DX: Z03.89 Encounter for observation for other suspected diseases and conditions ruled out (principal); S70.12XA Contusion of left thigh, initial encounter; E78.5 Hyperlipidemia, unspecified; I10 Essential (primary) hypertension; Z79.899 Other long term (current) drug therapy
CPT/HCPCS: 99281